=== PATIENT | female | born 1960 | race Caucasian/White ===

== ENCOUNTER 2025-10-31 01:49 | Emergency (ER) | payer MEDICAID ==
[~2025-10-31] VITALS: Ht 154.9 cm; Wt 62.5 kg
[2025-10-31 02:12] VITALS: BP 134/72; TEMP 36.6; O2SAT 99
[2025-10-31 02:15] VITALS: PULSE 89; RESP 18; O2SAT 97
== END 2025-10-31 03:08 | disposition left against medical advice (07) ==
LOC: ER 01:49
DX: R51.9 Headache, unspecified (principal)
CPT/HCPCS: 99281